=== PATIENT | female | born 1950 | race Caucasian/White ===

== ENCOUNTER 2017-06-26 16:01 | Emergency (ER) | payer MEDICARE, BC ==
[~2017-06-26] VITALS: Ht 154.9 cm; Wt 117.9 kg
--- NOTE | ~2017-06-26 | CR282 ---
[facility] A Service of [facility] & [facility] RADIOLOGY TEXT RESULTS PATIENT: ISA SIMEON LOCATION: CFTX : 50 UNIT #: [id number] AGE: [address]: Livier Redman MD SEX: F ORDER DR: [id number] [facility] [address] [place], [place] [address] [id number] E MR#: [id number] #: [id number] NAME: ISA SIMEON : 1950 SEX: F STUDY DATE/TIME: 06/26/2017 16:49 UNIT: [facility]MI ROOM: STUDY DESCRIPTION: CR Wrist Min 3 View Rt Attending Physician: Livier Redman M.D. Ordering Physician: Livier Redman M.D. Primary Care Physician: Roseanna Lainez M.D. MEDICAL IMAGING REPORT This report is preliminary unless electronic signature is present EXAM Right wrist series 06/26/2017. HISTORY Fall. Pain. Today fell. Right wrist pain swelling. TECHNIQUE AP, lateral and oblique radiographs of the right wrist are presented. FINDINGS Comminuted intraarticular fracture of the distal radius. There is a dominant transverse/oblique fracture plane about 11 mm from the distal radial articular surface. There is a longitudinal fracture plane along the ulnar aspect of the distal radius. The dominant fracture fragments are angled posteriorly by approximately 30 degrees. The fracture fragment along the longitudinal fracture plane is angled somewhat in ulnar direction as well. Mild distraction of this fragment by up to about 2-3 mm. The dominant fragments are displaced posteriorly by up to about 3 mm on the lateral view. The proximal carpal row remains aligned with the articular surface of distal radius. There is a complete oblique fracture through the ulnar styloid process. The fragment measures about 6-7 mm in diameter with no significant displacement, distraction or angulation. The carpal bones themselves are intact. The visualized metacarpal and phalangeal bones are intact. Circumferential soft tissue swelling. No circumferential soft tissue swelling at level of wrist. No soft tissue defect, subcutaneous air or radiodense foreign body. Dictated by... Villa Hobson M.D. THIS IS AN ELECTRONICALLY VERIFIED REPORT Villa Hobson M.D. at 06/28/2017 2:44 PM JSK/meghan STS. [facility] A Service of [facility] RADIOLOGY TEXT RESULTS PATIENT: ISA SIMEON LOCATION: [facility] : 50 UNIT #: [id number] AGE: [address]: Livier Redman MD SEX: F ORDER DR: TD: 06/27/2017 11:34 JOB #: [id number] MEDICAL IMAGING REPORT Page 1 of 1 COPY
== END 2017-06-26 17:45 | disposition home or self-care (01) ==
LOC: CED 16:01 → CFTX 16:01
DX: S52.571A Other intraarticular fracture of lower end of right radius, initial encounter for closed fracture (principal); I10 Essential (primary) hypertension; W18.30XA Fall on same level, unspecified, initial encounter; Y92.009 Unspecified place in unspecified non-institutional (private) residence as the place of occurrence of the external cause
CPT/HCPCS: 29125; 73110; 99283